=== PATIENT | female | born 1965 | race Caucasian/White ===

== ENCOUNTER 2016-10-18 23:29 | Emergency (ER) | payer OTHER ==
[~2016-10-18] VITALS: Ht 152.4 cm; Wt 51.0 kg
[2016-10-19] MEDS ORDERED: LIDOCAINE HCL 1% 20ML VIAL (Pyxis) INJ MC ONE (07:00)
[2016-10-19] MEDS ORDERED: IBUPROFEN 600MG TABLET PO ONE (07:00)
[2016-10-19] MEDS ORDERED: TETANUS, DIPHTHERIA, PERTUSSIS VAC/PF 0.5ML (>7YR OLD) IM ONE (07:00)
[2016-10-19] MEDS ORDERED: BACITRACIN ZINC OINT UDPKT TOP ONE (07:00)
[2016-10-19] MEDS ORDERED: CEFTRIAXONE SODIUM 1 G/VIAL IM ONE (07:30)
[2016-10-19] MEDS ORDERED: LIDOCAINE HCL 1% 20ML VIAL (Pyxis) INJ INFIL ONE (08:00)
[2016-10-19 08:39] VITALS: BP 125/80
== END 2016-10-19 08:44 | disposition home or self-care (01) ==
LOC: ER 10-19 03:54
DX: S80.862A Insect bite (nonvenomous), left lower leg, initial encounter (principal); W57.XXXA Bitten or stung by nonvenomous insect and other nonvenomous arthropods, initial encounter; Y93.9 Activity, unspecified; Y92.9 Unspecified place or not applicable; R03.0 Elevated blood-pressure reading, without diagnosis of hypertension
CPT/HCPCS: 10060; 90471; 90715; 96372; 99284; J0696; J3490; X7700; Z7610

== ENCOUNTER 2016-10-21 20:08 | Emergency (ER) | payer OTHER ==
[~2016-10-21] VITALS: Ht 152.4 cm; Wt 57.0 kg
[2016-10-22 00:20] VITALS: BP 128/65
== END 2016-10-22 00:21 | disposition home or self-care (01) ==
LOC: ER 23:16
DX: Z48.00 Encounter for change or removal of nonsurgical wound dressing (principal)
CPT/HCPCS: 99283

== ENCOUNTER 2017-09-04 16:57 | Emergency (ER) | payer MEDICAID, OTHER ==
[~2017-09-04] VITALS: Ht 152.4 cm; Wt 55.0 kg
[2017-09-04] MEDS ORDERED: ACETAMINOPHEN 325MG TABLET PO ONE (18:00)
[2017-09-04] MEDS ORDERED: KETOROLAC 30MG/ML VIAL IV STA (19:04)
[2017-09-04] MEDS ORDERED: SODIUM CHLORIDE 0.9% 1,000 ML IV ONE (19:04)
[2017-09-04] MEDS ORDERED: ONDANSETRON HCL 4MG/2ML VIAL IV STA (19:04)
[2017-09-04 19:26] LABS: HEMOGLOBIN. 15.2 g/dL (12.0-16.0); MEAN CORPUSCULAR HEMOGLOBIN 32.1 pg (28.0-32.0); MEAN CORPUSCULAR VOLUME 93.4 fL (81.0-99.0); MEAN PLATELET VOLUME 7.7 fl (7.4-10.4); PLATELET 142 x1000/uL (130-400); RED BLOOD CELL COUNT 4.72 mill/uL (4.2-5.4); RED CELL DISTRIBUTION WIDTH 14.7 % (11.6-14.6)
[2017-09-04 19:29] LABS: CHLORIDE 104 mEq/L (98-107)
[2017-09-04 19:46] LABS: CLARITY URINE CLEAR (CLEAR); COLOR URINE YELLOW (YELLOW); KETONES URINE NEGATIVE (NEGATIVE); LEUKOCYTE ESTERASE URINE NEGATIVE (NEGATIVE); NITRITE URINE NEGATIVE (NEGATIVE); OCCULT BLOOD URINE NEGATIVE (NEGATIVE); PH URINE 6.5 (4.5-8.0); PROTEIN URINE NEGATIVE (NEGATIVE); SPECIFIC GRAVITY URINE 1.012 (1.005-1.030)
[2017-09-04 19:51] LABS: ATYPICAL LYMPHOCYTES 2; PLATELET ESTIMATE NORMAL
[2017-09-04 21:00] VITALS: BP 101/63
== END 2017-09-04 21:04 | disposition home or self-care (01) ==
LOC: ER 16:57
DX: R51 Headache (principal); R50.9 Fever, unspecified; Z98.890 Other specified postprocedural states
CPT/HCPCS: 36415; 70450; 71045; 80053; 81003; 81025; 85025; 87804; 96361; 96374; 96375; 99285; J1885; J2405; J7030

== ENCOUNTER 2018-05-14 22:33 | Inpatient (IN) | payer MEDICAID ==
[~2018-05-14] VITALS: Ht 157.5 cm; Wt 59.9 kg
[2018-05-15] LABS: CLARITY URINE CLEAR (CLEAR); COLOR URINE YELLOW (YELLOW); KETONES URINE TRACE (NEGATIVE); LEUKOCYTE ESTERASE URINE NEGATIVE (NEGATIVE); NITRITE URINE NEGATIVE (NEGATIVE); OCCULT BLOOD URINE NEGATIVE (NEGATIVE); PROTEIN URINE NEGATIVE (NEGATIVE); SPECIFIC GRAVITY URINE 1.023 (1.005-1.030); UROBILINOGEN URINE 0.2 E.U./dL (0.2-1.0)
[2018-05-15 03:01] LABS: EOSINOPHILS % 3.2 % (0.0-5.0); HEMATOCRIT. 43.3 % (36.0-48.0); HEMOGLOBIN. 14.9 g/dL (12.0-16.0); LYMPHOCYTES % 41.2 % (20.0-50.0); MEAN CORPUSCULAR HEMOGLOBIN 32.6 pg (28.0-32.0); MEAN CORPUSCULAR VOLUME 94.8 fL (81.0-99.0); MEAN PLATELET VOLUME 7.9 fl (7.4-10.4); MONOCYTES % 8.2 % (2.0-8.0); NEUTROPHILS % 46.4 % (40.0-76.0); PLATELET 220 x1000/uL (130-400); RED BLOOD CELL COUNT 4.57 mill/uL (4.2-5.4); RED CELL DISTRIBUTION WIDTH 14.5 % (11.6-14.6)
[2018-05-15 03:07] LABS: PROTHROMBIN TIME 10.3 sec (9.1-11.1)
[2018-05-15 03:56] LABS: CHLORIDE 107 mEq/L (98-107)
[2018-05-15] MEDS ORDERED: MECLIZINE 25MG TABLET PO ONE (05:00)
[2018-05-15 10:41] LABS: CHLORIDE 108 mEq/L (98-107)
[2018-05-15 13:03] VITALS: BP 104/58
[2018-05-15 13:17] VITALS: BP 105/52
[2018-05-15 13:18] VITALS: BP 103/58
[2018-05-15 16:00] VITALS: BP 90/53
[2018-05-15 19:04] VITALS: BP_SYST 102; BP_SYST 98; BP_DIAS 50; BP_DIAS 70
[2018-05-15] MEDS ORDERED: DOCUSATE SODIUM 100MG CAPSULE PO PRN (19:30)
[2018-05-15] MEDS ORDERED: IPRATROPIUM/ALBUTEROL 0.5-3(2.5)MG/3ML NEB INH PRN (19:30)
[2018-05-15] MEDS ORDERED: ONDANSETRON HCL 4MG/2ML INJ IV PRN (19:30)
[2018-05-15] MEDS ORDERED: MAGNESIUM/ALUMINUM HYDROXIDE/SIMETHICONE 30ML UDC PO PRN (19:30)
[2018-05-15] MEDS ORDERED: ACETAMINOPHEN 325MG TABLET PO PRN (19:30)
[2018-05-15 20:00] VITALS: BP 100/59
[2018-05-15] MEDS: SODIUM CHLORIDE 0.9% 1,000 ML IV SCH (22:58)
[2018-05-16] VITALS: BP 99/58
[2018-05-16 04:00] VITALS: BP 105/59
[2018-05-16 08:00] VITALS: BP 101/61
[2018-05-16 08:14] LABS: T4 FREE 0.91 ng/dL (0.76-1.46)
[2018-05-16] MEDS: HYDROCODONE/ACETAMINOPHEN 5/325MG TABLET PO PRN (10:41)
[2018-05-16 12:00] VITALS: BP 120/71
[2018-05-16] MEDS ORDERED: MECLIZINE 25MG TABLET PO PRN (12:15)
[2018-05-16] MEDS: SODIUM CHLORIDE 0.9% 1,000 ML IV SCH (13:13)
[2018-05-16 16:00] VITALS: BP 122/72
[2018-05-16] MEDS ORDERED: IPRATROPIUM/ALBUTEROL 0.5-3(2.5)MG/3ML NEB HHN PRN (18:45)
[2018-05-16 20:00] VITALS: BP 110/70
[2018-05-16] MEDS: LEVOFLOXACIN 250MG TABLET PO SCH (20:37)
[2018-05-17] VITALS: BP 112/75
[2018-05-17] MEDS: SODIUM CHLORIDE 0.9% 1,000 ML IV SCH (03:39)
[2018-05-17 04:00] VITALS: BP 110/80
[2018-05-17] MEDS: HYDROCODONE/ACETAMINOPHEN 5/325MG TABLET PO PRN (06:03)
[2018-05-17 08:00] VITALS: BP 145/89
[2018-05-17] MEDS: LEVOFLOXACIN 250MG TABLET PO SCH (10:45)
[2018-05-17 13:01] VITALS: BP 100/66
== END 2018-05-17 13:55 | disposition home or self-care (01) | DRG 139 ==
LOC: ER 22:33 → 5WST 05-15 06:36 → ENRESERV 05-15 09:27 → CANRESERV 05-15 09:27 → EDBEDREQSVC 05-15 09:52 → ENRESERV 05-15 10:22 → 5WST 05-15 18:02
PROVIDERS: ADMIT Internal Medicine; ATTEND Internal Medicine
DX: J18.9 Pneumonia, unspecified organism (principal); E87.8 Other disorders of electrolyte and fluid balance, not elsewhere classified; K30 Functional dyspepsia; N63.20 Unspecified lump in the left breast, unspecified quadrant; K76.9 Liver disease, unspecified; R22.2 Localized swelling, mass and lump, trunk; K59.00 Constipation, unspecified; Z98.891 History of uterine scar from previous surgery
CPT/HCPCS: 36415; 71045; 71250; 76700; 82378; 84145; 84439; 84443; 84484; 93005; 93970; 99285; J7030; J8597